=== PATIENT | female | born 2000 | race Caucasian/White ===

== ENCOUNTER → 2021-04-18 08:06 | Outpatient (CLI) | payer OTHER, SELFPAY ==
--- NOTE | 2021-04-18 08:08 | DI.US.S_ITS ---
ULTRASOUND OF LEFT BREAST: 04/18/2021 CLINICAL: Palpable left breast lump and focal pain. No prior exams were available for comparison. Color flow and real-time ultrasound of the left breast were performed. Hannon scale images of the real-time examination were reviewed. No significant abnormalities were seen sonographically in the left breast. IMPRESSION: NEGATIVE There is no sonographic evidence of malignancy. There is no abnormality seen in the left breast to correspond with the area of clinical concern and palpable abnormality in the upper outer quadrant which likely represent normal fibroglandular tissue, however, recommend clinical follow up for persistent or worsening symptoms, or development of any clinically suspicious findings. Findings and recommendations were conveyed to the patient during today's evaluation. This exam was interpreted at Station ID: [id number]. Electronically Signed By: Maury Bolanos M.D. aty/:04/18/2021 09:34:43 letter sent: Clinical Evaluation Ultrasound BI-RADS: 1 Negative
== END ==
PROVIDERS: Referring Provider Physician Assistant; Visit Provider Physician Assistant
DX: N64.4 Mastodynia (principal); N63.21 Unspecified lump in the left breast, upper outer quadrant
CPT/HCPCS: 76642

== ENCOUNTER 2021-06-05 21:02 | Emergency (ER) | payer OTHER, SELFPAY ==
[2021-06-05 21:06] VITALS: BP 110/57; PULSE 67; RESP 20; TEMP 36.1; O2SAT 100; BMI 16.0
[2021-06-05 21:07] VITALS: PULSE 79; O2SAT 100
--- NOTE | 2021-06-05 21:09 | ED.NAVMDI ---
HPI - Nausea/Vomiting/Diarrhea General Chief complaint: Nausea/Vomiting/Diarrhea Stated complaint: Vomiting Time Seen by Provider: 06/05/21 21:05 History of Present Illness HPI Narrative: 20-year-old female nonsmoker uses occasional marijuana presents with family in the chief complaint of persistent nausea and vomiting followed by abdominal cramping over the course of the day. She has felt achy and had chills but has no measured fever. She has had runny nose and nasal congestion but denies any sore throat, cough, chest pain. Denies any bad food, recent antibiotics, change in diet or medication changes. She states that she had vague headache earlier that is resolved now. Family with her states they had given her a dose of their DHE for migraine and her vomiting started a bit after that. She denies any neck pain, recent trauma or alcohol abuse Related Data Previous Rx's Medication Instructions Recorded triamcinolone acetonide 0.05 % 1 applic TOPICAL BID PRN #110 g 05/13/21 topical ointment ondansetron 4 mg disintegrating 4 mg PO TID-QID PRN #10 tab 06/05/21 tablet pantoprazole 40 mg tablet,delayed 40 mg PO DAILY #30 tab 06/05/21 release (Protonix) Allergies Allergy/AdvReac Type Severity Reaction Status Date / Time latex Allergy Verified 05/13/21 16:18 Review of Systems Review of Systems Narrative: GENERAL: See HP HEENT: Denies sinus pain, ear pain, sore throat, difficulty swallowing, dizziness. RESPIRATORY: Denies dyspnea, cough, wheezing, hemoptysis, sputum. CARDIOVASCULAR: Denies chest pain, palpitations, orthopnea, edema, GASTROINTESTINAL: See HP : Denies dysuria, frequency, incontinence, hematuria, urinary retention. MUSCULOSKELETAL: denies weakness, joint pain, or bony pain SKIN: Denies rash, skin lesions, or other NEUROLOGIC: Denies weakness, headache, numbness, change in speech, confusion, seizures, incoordination. PSYCHIATRIC: No concerning psychosocial issues. 12 point review of systems is negative except for those stated above Patient History Medical History Pain of left breast Social History Smoking Status: Current every day smoker Smoking Status: Current every day smoker Exam Narrative Exam Narrative: GENERAL: [20 year old patient appears stated age. Thin, in moderate distress, obviously uncomfortable, holding an emesis bag in actively vomiting, no blood noted HEAD: Atraumatic. Normocephalic. EYES: Pupils equal round and reactive. Extraocular motions intact. No scleral icterus. No injection or drainage. ENT: Nose without bleeding, purulent drainage. Throat without erythema, tonsillar hypertrophy or exudate. Airway patent. NECK: Trachea midline. Non tender CARDIOVASCULAR: Regular rate and rhythm without murmurs, gallops, or rubs. RESPIRATORY: Clear to auscultation. Breath sounds equal bilaterally. No wheezes, rales, or rhonchi. GASTROINTESTINAL: Abdomen soft, generalized tenderness, nondistended. EXTREMITIES: No edema or joint tenderness. BACK: Nontender without deformity or crepitance. No flank tenderness. NEURO: AOx3. SKIN: No rash or erythema of visible areas Initial Vital Signs Initial Vital Signs: Vital Signs Temperature 97.0 F L 06/05/21 21:06 Pulse Rate 67 06/05/21 21:06 Respiratory Rate 20 06/05/21 21:06 Blood Pressure 110/57 L 06/05/21 21:06 Pulse Oximetry 100 06/05/21 21:06 Course Orders Ordered: ED Orders 06/05/21 21:06 COVID19 -Nasal swab/Pre-Proc Stat 06/05/21 21:17 Complete Blood Count AUTO DIFF Stat Comprehensive Metabolic Panel Stat Ketones (Beta-Hydroxybutyrate) Stat Lipase Stat Discontinued Medications Sodium Chloride (Normal Saline 0.9%) 1,000 mls @ 1,000 mls/hr IV BOLUS ONE Stop: 06/05/21 22:17 Last Admin: 06/05/21 21:26 Dose: 1,000 mls/hr Documented by: ATAYLOR Ondansetron HCl (Ondansetron 4 Mg/2 Ml Inj) 4 mg IV NOW ONE Stop: 06/05/21 21:19 Last Admin: 06/05/21 21:26 Dose: 4 mg Documented by: ATAYLOR Ondansetron HCl (Ondansetron 4 Mg Odt Prepack) 1 bottle MISC SEEINSTR ONE Stop: 06/05/21 22:38 Last Admin: 06/05/21 22:42 Dose: 1 bottle Documented by: ATAYLOR Pantoprazole Sodium (Pantoprazole 40 Mg Vial) 40 mg IV NOW ONE Stop: 06/05/21 21:19 Last Admin: 06/05/21 21:26 Dose: 40 mg Documented by: DONI Vital Signs Vital signs: Vital Signs - 8 hr 06/05/21 21:06 06/05/21 21:07 06/05/21 21:30 Temperature 97.0 F L Pulse Rate 67 79 54 L Respiratory Rate 20 Blood Pressure 110/57 L Pulse Oximetry 100 100 100 06/05/21 22:00 06/05/21 22:47 Temperature Pulse Rate 66 62 Respiratory Rate 15 Blood Pressure 108/61 Pulse Oximetry 100 99 MDM - Nausea/Vomiting/Diarrhea Lab Data Result diagrams: 06/05/21 21:17 06/05/21 21:17 Labs: Lab Results 06/05/21 06/05/21 06/05/21 Range/Units 21:06 21:17 21:17 WBC 11.6 H (4.5-11.0) X10^3/uL RBC 4.45 (4.0-5.2) X10^6/uL Hgb 12.7 (12.0-16.0) g/dL Hct 37.8 (36-46) % MCV 85.0 (80-100) fL MCH 28.5 (26-34) PG MCHC 33.5 (30-36) % RDW 14.1 (11.6-14.8) % Plt Count 205 (150-400) X10^3/uL Neut % (Auto) 79.5 H (50-75) % Lymph % (Auto) 14.8 L (25-40) % [place] % (Auto) 5.1 (3-14) % Eos % (Auto) 0.3 L (2-4) % Baso % (Auto) 0.3 (0-2) % Neut # (Auto) 9300 H (1227-7217) /uL Lymph # (Auto) 1700 (1859-0983) /uL [place] # (Auto) 600 (0-900) /uL Eos # (Auto) 0 (0-450) /uL Baso # (Auto) 0 (0-100) /uL Sodium 138 (137-145) mmol/L Potassium 3.6 (3.4-5.1) mmol/L Chloride 106 (98-107) mmol/L Carbon Dioxide 24 (22-32) mmol/L BUN 9 (7-17) mg/dL Creatinine 0.53 (0.52-1.04) mg/dL Estimated GFR > 60.0 (>60) mL/min BUN/Creatinine Ratio 17.0 (6-22) Glucose 133 H (70-100) mg/dL Calcium 10.1 (8.4-10.2) mg/dL Total Bilirubin 0.5 (0.2-1.3) mg/dL AST 52 H (14-36) IU/L ALT 33 (<35) IU/L Alkaline Phosphatase 59 (38-126) U/L Total Protein 7.8 (6.3-8.2) g/dL Albumin 4.7 (3.5-5.0) g/dL Globulin 3.1 (1.7-4.1) g/dL Albumin/Globulin Ratio 1.5 (1.0-2.8) Lipase 178 (23-300) U/L Ketones 0.50 H (<0.27) mmol/L SARS-CoV-2 (PCR) Negative (Negative) MDM Narrative Medical decision making narrative: Patient with reassuring history and physical exam. Labs are unremarkable. She has a near complete resolution of symptoms after the above-stated therapies. There is no indication of any significant underlying diagnosis that would require surgical intervention or hospitalization. Her pain is well controlled and she is tolerating orals. Her symptoms did start after taking a a dose of another person's dihydroergotamine which thankfully helped her headache but may have led to her vomiting. She has no evidence of appendicitis, bowel obstruction or other. Return precautions given and questions answered to her apparent satisfaction Discharge Plan Departure Patient Disposition: Home Clinical Impression: Nausea & vomiting Instructions: Nausea and Vomiting-Adult Activity Restrictions/Additional Instructions: *You have been diagnosed with [nausea and vomiting. Your history, physical exam, labs and response to therapies are very reassuring. *What to do: *Please continue to take your regular medications as directed. [x ] New medication prescriptions sent to your pharmacy: [[facility] ] [ ] New medication written as a paper prescription [ ] No new medications given *Please follow up with your primary care provider in 2-3 days, call for an appointment. Let them know you were seen in the Emergency Department and that we ask that you be seen in follow up. We will electronically transmit a record of today's note if your PCP is in our system * please consider a clear liquid diet for the next 24-48 hours and then advance slowly as tolerated *If you do not have a primary care provider please contact the [facility] Resource line at [phone]. They will ask some questions about your medical history and help get you set up with a doctor in the community. *Return to Emergency Department if you should have any new, worsening or concerning symptoms, such as [fever greater than 101 F, shaking chills, worsening pain, persistent vomiting or other bothersome symptoms] Prescriptions: New pantoprazole [Protonix] 40 mg tablet,delayed release (DR/EC) 40 mg PO DAILY Qty: 30 0RF ondansetron 4 mg tablet,disintegrating 4 mg PO TID-QID PRN (Reason: nausea and vomiting) Qty: 10 0RF No Action triamcinolone acetonide 0.05 % ointment 1 applic topical BID PRN (Reason: skin flaking) Qty: 110 0RF Rx Instructions: no longer than two weeks at a time Referrals: Felix Aden MD [Primary Care Provider] -
[2021-06-05] MEDS: SODIUM CHLORIDE 0.9% 1,000 ML 1000 ML IV (21:26)
[2021-06-05] MEDS: ONDANSETRON 4 MG/2 ML INJ IV (21:26)
[2021-06-05] MEDS: PANTOPRAZOLE 40 MG VIAL IV (21:26)
[2021-06-05 21:30] VITALS: PULSE 54; O2SAT 100
[2021-06-05 21:34] LABS: Add Manual Diff / Slide Review NO; Basophils Absolute Auto 0 /uL (0-100); Basophils Percent Auto 0.3 % (0-2); Eosinophils Absolute Auto 0 /uL (0-450); Eosinophils Percent Auto 0.3 % (2-4); Hematocrit 37.8 % (36-46); Hemoglobin 12.7 g/dL (12.0-16.0); Lymphocytes Absolute Auto 1700 /uL (1100-4500); Lymphocytes Percent Auto 14.8 % (25-40); Mean Corpuscular HGB Conc 33.5 % (30-36); Mean Corpuscular Hemoglobin 28.5 PG (26-34); Monocytes Absolute Auto 600 /uL (0-900); Monocytes Percent Auto 5.1 % (3-14); Neutrophils Absolute Auto 9300 /uL (1500-7000); Neutrophils Percent Auto 79.5 % (50-75); Platelet Count 205 X10^3/uL (150-400); Red Blood Cell Count 4.45 X10^6/uL (4.0-5.2); Red Cell Distribution Width 14.1 % (11.6-14.8); White Blood Cell Count 11.6 X10^3/uL (4.5-11.0)
[2021-06-05 21:39] LABS: COVID19 -Nasal RAPID Negative (Negative)
[2021-06-05 21:43] LABS: Alanine Aminotransferase 33 IU/L (<35); Albumin 4.7 g/dL (3.5-5.0); Albumin Globulin Ratio 1.5 (1.0-2.8); Alkaline Phosphatase 59 U/L (38-126); Aspartate Aminotransferase 52 IU/L (14-36); Bilirubin Total 0.5 mg/dL (0.2-1.3); Blood Urea Nitrogen 9 mg/dL (7-17); Calcium 10.1 mg/dL (8.4-10.2); Carbon Dioxide 24 mmol/L (22-32); Chloride 106 mmol/L (98-107); Estimated Glomerular Filt Rate > 60.0 mL/min (>60); Globulin 3.1 g/dL (1.7-4.1); Glucose 133 mg/dL (70-100); HEMOLYSIS < 15 (0-50); Lipase 178 U/L (23-300); Potassium 3.6 mmol/L (3.4-5.1); Sodium 138 mmol/L (137-145); Total Protein 7.8 g/dL (6.3-8.2)
[2021-06-05 22:00] VITALS: PULSE 66; O2SAT 100
--- NOTE | 2021-06-05 22:17 | PC.NURSE ---
Per Dr. Kemp, pt provided water and oral challenge started.
[2021-06-05] MEDS: ONDANSETRON 4 MG ODT PREPACK 1 BOTTLE MISC (22:42)
[2021-06-05 22:47] VITALS: BP 108/61; PULSE 62; RESP 15; O2SAT 99
--- NOTE | 2021-06-07 19:45 | PC.NURSE ---
Late Entry: Sodium Chloride 0.9% 1L completed at 2220 on 06/05/21.
== END 2021-06-05 22:48 | disposition home or self-care (01) ==
PROVIDERS: Emergency Provider Emergency Medicine; PCP Family Medicine
DX: R11.2 Nausea with vomiting, unspecified (principal); F17.200 Nicotine dependence, unspecified, uncomplicated; Z20.822 Contact with and (suspected) exposure to COVID-19
CPT/HCPCS: 36415; 80053; 82009; 83690; 85025; 87635; 96361; 96374; 96375; 99284; C9803; C9113; J2405

== ENCOUNTER 2022-12-21 19:13 | Emergency (ER) | payer OTHER, SELFPAY ==
[2022-12-21] VITALS (8 sets, daily range): BP systolic 105–128; BP diastolic 67–83; PULSE 62–93; RESP 16–24; TEMP 37.1; O2SAT 98–99; BMI 15.7
--- NOTE | 2022-12-21 19:44 | ED.GENADULT ---
HPI - General Adult General Chief complaint: Chest Pain Stated complaint: CHEST PAIN/THINKS HERNIA Time Seen by Provider: 12/21/22 19:26 Source: patient and family Mode of arrival: Ambulatory History of Present Illness HPI narrative: 22-year-old female smoker presents with a chief complaint of a burning sensation in her upper chest that has been present ever since her a few years ago. She states that it all seemed to start with that when she had a bad case of hyperemesis gravidarum and was seen on multiple occasions for vomiting. She has this burning sensation on an almost daily basis and called her primary care doctor for follow-up today but was instructed to present to the emergency department 1st given her complaint of chest pain. She states it seems to occur when she lies flat, with certain foods and more frequently when she tries to exercise. She denies any fever or chills. She is had no nausea or vomiting. She had historically been prescribed Protonix but has not taken it in quite some time. She denies any recent travel, trauma or injury. Related Data Previous Rx's Medication Instructions Recorded ondansetron 4 mg disintegrating 4 mg PO TID-QID PRN nausea and 06/05/21 tablet vomiting #10 tabs pantoprazole 40 mg tablet,delayed 40 mg PO DAILY #30 tabs 06/05/21 release (Protonix) triamcinolone acetonide 0.1 % 1 applic topical BID PRN skin 06/11/21 topical ointment flaking #80 grams pantoprazole 40 mg tablet,delayed 40 mg PO DAILY #30 tabs 12/21/22 release (Protonix) Allergies Allergy/AdvReac Type Severity Reaction Status Date / Time latex Allergy Rash Verified 12/21/22 19:35 Review of Systems Review of Systems Narrative: GENERAL: Denies chills, fatigue, malaise, fever, sweats. HEENT: Denies sinus pain, ear pain, sore throat, difficulty swallowing, dizziness. RESPIRATORY: Denies dyspnea, cough, wheezing, hemoptysis, sputum. CARDIOVASCULAR: See HPI GASTROINTESTINAL: See HPI : Denies dysuria, frequency, incontinence, hematuria, urinary retention. MUSCULOSKELETAL: denies weakness, joint pain, or bony pain SKIN: Denies rash, skin lesions, or other NEUROLOGIC: Denies weakness, headache, numbness, change in speech, confusion, seizures, incoordination. PSYCHIATRIC: No concerning psychosocial issues. 12 point review of systems is negative except for those stated above Patient History Medical History Pain of left breast Social History Smoking Status: Current every day smoker Smoking Status: Current every day smoker alcohol intake frequency: a few times a month Substance Use Type: marijuana Exam Narrative Exam Narrative: GENERAL: [22] year old patient appears stated age. Well-developed patient, in mild distress. HEAD: Atraumatic. Normocephalic. EYES: Pupils equal round and reactive. Extraocular motions intact. No scleral icterus. No injection or drainage. ENT: Nose without bleeding, purulent drainage. Throat without erythema, tonsillar hypertrophy or exudate. Airway patent. NECK: Trachea midline. Non tender CARDIOVASCULAR: Regular rate and rhythm without murmurs, gallops, or rubs. RESPIRATORY: Clear to auscultation. Breath sounds equal bilaterally. No wheezes, rales, or rhonchi. GASTROINTESTINAL: Abdomen soft, non-tender, nondistended. EXTREMITIES: No edema or joint tenderness. BACK: Nontender without deformity or crepitance. No flank tenderness. NEURO: AOx3. SKIN: No rash or erythema of visible areas Initial Vital Signs Initial Vital Signs: Vital Signs Temperature 98.7 F 12/21/22 19:35 Pulse Rate 93 H 12/21/22 19:35 Respiratory Rate 16 12/21/22 19:35 Blood Pressure 128/67 12/21/22 19:35 Pulse Oximetry 98 12/21/22 19:35 Oxygen Delivery Method Room Air 12/21/22 19:35 Scores PERC Score Age greater than or equal to 50 years: No Heart rate greater than or equal to 100 bpm: No Room Air O2 Sat less than 95%: No Unilateral leg swelling: No Recent trauma or surgery: No Hemoptysis: No Prior PE or DVT: No Hormone Use: No Total PERC Score: 0 Wells' Criteria for PE Clinical signs and symptoms of DVT: No PE is #1 Dx or equally likely: No Heart rate > 100: No Immobilization at least 3 days or surg in previous 4 weeks: No History of PE or DVT: No Hemoptysis: No Malignancy w/Treatment within 6 months or palliative: No Wells' PE Score total: 0 Course Orders Ordered: Discontinued Medications Aspirin (Aspirin 81 Mg Chew Tab) 324 mg PO NOW ONE Stop: 12/21/22 19:46 Last Admin: 12/21/22 20:58 Dose: Not Given Documented By: ES Sodium Chloride (Normal Saline 0.9%) 1,000 mls @ 150 mls/hr IV CONT CARLYLE Last Admin: 12/21/22 20:58 Dose: Not Given Documented By: ES Vital Signs Vital signs: Vital Signs - 8 hr 12/21/22 19:35 Temperature 98.7 F Pulse Rate 93 H Respiratory Rate 16 Blood Pressure 128/67 Pulse Oximetry 98 Oxygen Delivery Method Room Air Medical Decision Making Lab Data 12/21/22 20:46 12/21/22 20:46 Labs: Lab Results 12/21/22 12/21/22 12/21/22 Range/Units 20:46 20:46 20:46 WBC 7.9 (4.5-11.0) X10^3/uL RBC 4.42 (4.0-5.2) X10^6/uL Hgb 13.5 (12.0-16.0) g/dL Hct 38.4 (36-46) % MCV 86.9 (80-100) fL MCH 30.5 (26-34) PG MCHC 35.0 (30-36) % RDW 13.2 (11.6-14.8) % Plt Count 168 (150-400) X10^3/uL Neut % (Auto) 54.4 (50-75) % Lymph % (Auto) 35.3 (25-40) % [place] % (Auto) 6.8 (3-14) % Eos % (Auto) 3.1 (2-4) % Baso % (Auto) 0.4 (0-2) % Neut # (Auto) 4300 (9361-5404) /uL Lymph # (Auto) 2800 (0591-3236) /uL [place] # (Auto) 500 (0-900) /uL Eos # (Auto) 200 (0-450) /uL Baso # (Auto) 0 (0-100) /uL D-Dimer 348 (<500) ng/ml Sodium 136 L (137-145) mmol/L Potassium 3.5 (3.4-5.1) mmol/L Chloride 105 (98-107) mmol/L Carbon Dioxide 25 (22-32) mmol/L BUN 8 (7-17) mg/dL Creatinine 0.57 (0.52-1.04) mg/dL Estimated GFR > 60 (>60) mL/min BUN/Creatinine Ratio 14.0 (6-22) Glucose 101 H (70-100) mg/dL Calcium 8.9 (8.4-10.2) mg/dL Total Bilirubin 0.3 (0.2-1.3) mg/dL AST 28 (14-36) IU/L ALT 25 (<35) IU/L Alkaline Phosphatase 49 (38-126) U/L Total Creatine Kinase 68 (30-135) U/L Troponin I < 0.012 (0.01-0.034) ng/mL NT-Pro-B Natriuret Pep (<125) pg/mL Total Protein 7.2 (6.3-8.2) g/dL Albumin 4.2 (3.5-5.0) g/dL Globulin 3.0 (1.7-4.1) g/dL Albumin/Globulin Ratio 1.4 (1.0-2.8) Lipase 83 (23-300) U/L Procalcitonin 0.04 (<0.5) ng/mL 12/21/22 Range/Units 20:46 WBC (4.5-11.0) X10^3/uL RBC (4.0-5.2) X10^6/uL Hgb (12.0-16.0) g/dL Hct (36-46) % MCV (80-100) fL MCH (26-34) PG MCHC (30-36) % RDW (11.6-14.8) % Plt Count (150-400) X10^3/uL Neut % (Auto) (50-75) % Lymph % (Auto) (25-40) % [place] % (Auto) (3-14) % Eos % (Auto) (2-4) % Baso % (Auto) (0-2) % Neut # (Auto) (5159-6721) /uL Lymph # (Auto) (6073-8331) /uL [place] # (Auto) (0-900) /uL Eos # (Auto) (0-450) /uL Baso # (Auto) (0-100) /uL D-Dimer (<500) ng/ml Sodium (137-145) mmol/L Potassium (3.4-5.1) mmol/L Chloride (98-107) mmol/L Carbon Dioxide (22-32) mmol/L BUN (7-17) mg/dL Creatinine (0.52-1.04) mg/dL Estimated GFR (>60) mL/min BUN/Creatinine Ratio (6-22) Glucose (70-100) mg/dL Calcium (8.4-10.2) mg/dL Total Bilirubin (0.2-1.3) mg/dL AST (14-36) IU/L ALT (<35) IU/L Alkaline Phosphatase (38-126) U/L Total Creatine Kinase (30-135) U/L Troponin I (0.01-0.034) ng/mL NT-Pro-B Natriuret Pep < 20 (<125) pg/mL Total Protein (6.3-8.2) g/dL Albumin (3.5-5.0) g/dL Globulin (1.7-4.1) g/dL Albumin/Globulin Ratio (1.0-2.8) Lipase (23-300) U/L Procalcitonin (<0.5) ng/mL MDM Narrative Medical decision making narrative: [age] year old patient presents with a few years of epigastric pain Multiple etiologies for patient's symptoms considered including, but not limited to: [Esophageal spasm versus reflux versus pneumonia versus pulmonary embolism versus other] Prior Charts reviewed in our EMR Primary Historian: patient Labs reviewed and interpreted by myself: Imaging reviewed:CXR NAP Patient's symptoms improved over duration of stay with above-stated therapies. Findings and discharge diagnosis discussed with patient/family followed by verbalization of understanding Return precautions discussed with patient/family whom verbalize understanding of diagnosis and plan Discharge Plan Departure Patient Disposition: Home Clinical Impression: Chronic epigastric pain Instructions: DI for Epigastric Pain Activity Restrictions/Additional Instructions: *You have been diagnosed with [epigastric pain. As we discussed your history and physical exam are reassuring and there is no evidence of heart attack, blood clot or other specific diagnosis that requires immediate intervention] *What to do: *Please continue to take your regular medications as directed. [x ] New medication prescriptions sent to your pharmacy: [ [facility] in [place]] [ ] New medication written as a paper prescription [ ] No new medications given *Please follow up with your primary care provider in 2-3 days, call for an appointment. Let them know you were seen in the Emergency Department and that we ask that you be seen in follow up. We will electronically transmit a record of today's note if your PCP is in our system *If you do not have a primary care provider please contact the [facility] Resource line at [phone]. They will ask some questions about your medical history and help get you set up with a doctor in the community. *Return to Emergency Department if you should have any new, worsening or concerning symptoms, such as [fever greater than 101 F, shaking chills, worsening pain, persistent vomiting or other bothersome symptoms] Prescriptions: New pantoprazole [Protonix] 40 mg tablet,delayed release (DR/EC) 40 mg PO DAILY Qty: 30 0RF No Action triamcinolone acetonide 0.1 % ointment 1 applic topical BID PRN (Reason: skin flaking) Qty: 80 0RF Rx Instructions: no longer than two weeks at a time pantoprazole [Protonix] 40 mg tablet,delayed release (DR/EC) 40 mg PO DAILY Qty: 30 0RF ondansetron 4 mg tablet,disintegrating 4 mg PO TID-QID PRN (Reason: nausea and vomiting) Qty: 10 0RF Referrals: Felix Aden MD [Primary Care Provider] - Stand Alone Forms: Patient Portal/API
--- NOTE | 2022-12-21 19:45 | DI.RAD.S_ITS ---
PROCEDURE: XR CHEST 1V INDICATIONS: chest pain TECHNIQUE: One view of the chest was acquired. COMPARISON: None. FINDINGS: Surgical changes and devices: None. Lungs and pleura: Lungs are clear. No pleural effusions or pneumothorax. Mediastinum: Mediastinal contours appear normal. Heart size is normal. Bones and chest wall: No suspicious bony lesions. Overlying soft tissues appear unremarkable. IMPRESSION: 1. No acute cardiopulmonary disease. Dictated by: Eliazar Hanley M.D. on 12/21/2022 at 21:07 Approved by: Eliazar Hanley M.D. on 12/21/2022 at 21:07
[2022-12-21 21:34] LABS: Add Manual Diff / Slide Review NO; Basophils Absolute Auto 0 /uL (0-100); Basophils Percent Auto 0.4 % (0-2); Eosinophils Absolute Auto 200 /uL (0-450); Eosinophils Percent Auto 3.1 % (2-4); Hematocrit 38.4 % (36-46); Hemoglobin 13.5 g/dL (12.0-16.0); Lymphocytes Absolute Auto 2800 /uL (1100-4500); Lymphocytes Percent Auto 35.3 % (25-40); Mean Corpuscular Hemoglobin 30.5 PG (26-34); Mean Corpuscular Volume 86.9 fL (80-100); Monocytes Absolute Auto 500 /uL (0-900); Monocytes Percent Auto 6.8 % (3-14); Neutrophils Absolute Auto 4300 /uL (1500-7000); Neutrophils Percent Auto 54.4 % (50-75); Platelet Count 168 X10^3/uL (150-400); Red Blood Cell Count 4.42 X10^6/uL (4.0-5.2); Red Cell Distribution Width 13.2 % (11.6-14.8); White Blood Cell Count 7.9 X10^3/uL (4.5-11.0)
[2022-12-21 21:42] LABS: D Dimer 348 ng/ml (<500)
[2022-12-21 21:45] LABS: Alanine Aminotransferase 25 IU/L (<35); Albumin 4.2 g/dL (3.5-5.0); Albumin Globulin Ratio 1.4 (1.0-2.8); Alkaline Phosphatase 49 U/L (38-126); Aspartate Aminotransferase 28 IU/L (14-36); Bilirubin Total 0.3 mg/dL (0.2-1.3); Blood Urea Nitrogen 8 mg/dL (7-17); Calcium 8.9 mg/dL (8.4-10.2); Carbon Dioxide 25 mmol/L (22-32); Chloride 105 mmol/L (98-107); Creatine Kinase 68 U/L (30-135); Estimated Glomerular Filt Rate > 60 mL/min (>60); Glucose 101 mg/dL (70-100); HEMOLYSIS < 15 (0-50); Lipase 83 U/L (23-300); Potassium 3.5 mmol/L (3.4-5.1); Sodium 136 mmol/L (137-145); Total Protein 7.2 g/dL (6.3-8.2)
[2022-12-21 21:56] LABS: Troponin I < 0.012 ng/mL (0.01-0.034)
[2022-12-21 22:02] LABS: Procalcitonin 0.04 ng/mL (<0.5)
[2022-12-21 22:21] LABS: NT-proBNP (BNP-Adult 18+) < 20 pg/mL (<125)
== END 2022-12-21 22:22 | disposition home or self-care (01) ==
PROVIDERS: Emergency Provider Emergency Medicine; PCP Family Medicine
DX: R10.13 Epigastric pain (principal); R07.9 Chest pain, unspecified
CPT/HCPCS: 71045; 80053; 82550; 83690; 83880; 84145; 84484; 85025; 85379; 93005; 99283; 99284